=== PATIENT | male | born 1970 | race Caucasian/White ===

== ENCOUNTER 2019-11-09 08:37 | Outpatient (CLI) | payer BC, SELFPAY ==
[2019-11-09] MEDS: diphenhydrAMINE 50 mg/mL SDV 1mL 25 MG IVP (09:30)
[2019-11-09] MEDS: acetaminophen 500 mg Tablet 1000 MG PO (12:40)
== END 2019-11-09 08:38 | disposition home or self-care (01) ==
LOC: NSACUTE 08:39
PROVIDERS: PCP Physician Assistant; Visit Provider Specialist
DX: G35 Multiple sclerosis (principal)
CPT/HCPCS: 96365; 96366; 96374; 96375; 99213; J1200; J2350; J2930; J7040

== ENCOUNTER 2019-11-18 08:03 | Outpatient (CLI) | payer BC, SELFPAY ==
[2019-11-18 08:40] LABS: Basophils % 0.8 %; Eosinophils # 0.3 10^3/uL (0.0-0.8); Eosinophils % 7.6 %; Hematocrit 42.5 % (42.0-52.0); Hemoglobin 14.1 g/dL (11.7-16.6); Lymphocytes # 0.7 10^3/uL (0.8-4.8); Lymphocytes % 16.5 %; Mean Corpuscular HGB Conc 33.2 g/dL (30.0-36.0); Mean Corpuscular Hemoglobin 32.4 pg (28.0-34.0); Mean Corpuscular Volume 97.7 fL (80-94); Mean Platelet Volume 12.2 fL (7.4-10.4); Monocytes # 0.4 10^3/uL (0.2-0.9); Monocytes % 10.7 %; Neutrophils # 2.5 10^3/uL (1.8-7.7); Neutrophils % 64.1 %; Nucleated Red Blood Cells % 0 %; Platelet Count 195 10^3/cmm (130-400); Red Blood Count 4.35 10^6/uL (4.1-5.3); Red Cell Distribution Width 12.1 % (12.1-15.1); White Blood Count 3.9 10^3/uL (4.0-10.0)
[2019-11-18 08:58] LABS: Anion Gap 12.6 (5-19); Blood Urea Nitrogen 13 mg/dL (6-20); Calcium 9.8 mg/dL (8.5-10.5); Carbon Dioxide 26 mmol/L (22-29); Chloride 104 mmol/L (98-107); Glomerular Filtration Rate 64.9 mL/min (90-130); Glucose 106 mg/dL (65-115); Osmolality Calculated 283 mOsm/kg (285-295); Potassium 4.6 mmol/L (3.5-5.1); Sodium 138 mmol/L (136-145)
== END 2019-11-18 08:04 | disposition home or self-care (01) ==
LOC: LAB 08:03
PROVIDERS: PCP Physician Assistant; Visit Provider Specialist
DX: G35 Multiple sclerosis (principal)
CPT/HCPCS: 80048; 85025

== ENCOUNTER 2020-04-27 08:00 | Outpatient (CLI) | payer BC, SELFPAY ==
[2020-04-27] MEDS: acetaminophen 500 mg Tablet 1000 MG PO (08:10)
[2020-04-27] MEDS: diphenhydrAMINE 50 mg/mL SDV 1mL 25 MG IVP (08:30)
== END 2020-04-27 08:01 | disposition home or self-care (01) ==
LOC: NSACUTE 08:01
PROVIDERS: PCP Physician Assistant; Visit Provider Specialist
DX: G35 Multiple sclerosis (principal)
CPT/HCPCS: 96365; 96366; 96375; 99214; J1200; J2350; J2930; J7040

== ENCOUNTER 2020-05-16 07:46 | Outpatient (CLI) | payer BC, SELFPAY ==
--- NOTE | 2020-05-16 08:08 | MR_ITS ---
WS: [id number] MRI HEAD WITH CONTRAST TECHNIQUE: Sagittal T1, T2 axial, T2 axial FLAIR, axial susceptibility weighted imaging, axial diffus ion weighted images, and coronal T2 images were obtained. Pre and post-T1 axial and post T1 coronal i mages. ADC and FSPGR images. CLINICAL INFORMATION: MS COMPARISON: MRI 3 , . 1 and September 08, 2012. FINDINGS: Mild patchy supratentorial white matter changes compatible with history of demyelinating disease. The number and distribution of lesions is not significantly changed since October 23, 2018. Mild T1 hypoin tense lesion load. No abnormal gadolinium enhancement. No enhancing lesions to indicate active diseas e. No significant parenchymal volume loss. No significant atrophy of the corpus callosum. No hemosiderin on susceptibly weighted images. Normal optic chiasm and pituitary infundibulum. Tempor al lobes and hippocampal formations are normal in appearance. Paranasal sinuses and mastoid air cells well aerated. Normal visualized dural venous sinuses. MR/MR head wo/w con [id number] IMPRESSION: 1. Stable patchy supratentorial white matter changes compatible with demyelina ting disease. 2. No enhancing lesions to indicate active disease. 3. Mild T1 hypointense lesion load. 4. No significant parenchymal volume loss. 5. No hemosiderin on the susceptibly weighted images.
--- NOTE | 2020-05-16 08:09 | MR_ITS ---
WS: [id number] MRI CERVICAL SPINE NONCONTRAST AND CONTRAST TECHNIQUE: Sagittal T1, T2 and STIR imaging. Axial T2, gradient, and fiesta imaging. Post gadolinium imaging CLINICAL INFORMATION: MS COMPARISON: and FINDINGS: Straightening of the normal cervical lordosis. Chronic demyelinating plaques in the cervical cord at C2 on C3. No enhancing lesions to indicate active disease. No visualized new lesions since 2016. No s ignificant cord atrophy. C3-C4: Osteophytic ridging. Tiny central protrusion. Mild right greater than left foraminal narrowing . Mild facet arthropathy. C4-C5: Disc osteophyte complex with a shallow central protrusion. Mild central canal stenosis and sli ght contact of the cervical cord. Mild right greater than left foraminal narrowing. Mild facet arthro awa. C5-C6: Minimal disc bulging. Mild left and no significant right foraminal narrowing. Spinal canal is patent. C6-C7: Mild right greater than left foraminal narrowing. Spinal canal is patent. C7-T1: Normal. Visualized brain stem structures: Normal. Prevertebral soft tissues: Normal. MR/MR cervical spine wo/w [id number] IMPRESSION: 1. Chronic demyelinating plaques in the cervical cord at C2 and C3 unchanged f rom previous. No new demyelinating lesions. 2. No enhancing lesions to indicate active disease. 3. No significant cord atrophy. 4. Mild central canal stenosis C4-C5 and C5-C6 due to disc osteophyte complexe s. Tiny central protrusion C4-C5 slightly contacts the cervical cord. This is s lightly progressed since 2016. 5. Mild foraminal narrowing worse at right C3-C4, right C4-C5, left C5-C6 and bilateral C6-C7.
== END 2020-05-16 07:47 | disposition home or self-care (01) ==
LOC: RADWPI 07:50
PROVIDERS: Family Provider Physician Assistant; PCP Physician Assistant; Visit Provider Specialist
DX: G35 Multiple sclerosis (principal); M48.02 Spinal stenosis, cervical region; M25.78 Osteophyte, vertebrae
CPT/HCPCS: 70553; 72156; A9579

== ENCOUNTER 2020-10-18 08:20 | Outpatient (CLI) | payer BC, SELFPAY ==
[2020-10-18] MEDS: acetaminophen 500 mg Tablet 1000 MG PO (08:50)
[2020-10-18] MEDS: diphenhydrAMINE 50 mg/mL SDV 1mL 12.5 MG IVP (08:54)
--- NOTE | 2020-10-18 10:18 | PC.NURSE ---
Medication lot numbers: Solumedrol [id number] 06/09 Benadryl [id number] 12/08 Ocrevus [id number] 06/08
== END 2020-10-18 08:21 | disposition home or self-care (01) ==
LOC: NSACUTE 08:21
PROVIDERS: Family Provider Physician Assistant; PCP Physician Assistant; Visit Provider Specialist
DX: G35 Multiple sclerosis (principal); Z79.899 Other long term (current) drug therapy
CPT/HCPCS: 96365; 96366; 96375; 99214; J1200; J2350; J2930; J7040

== ENCOUNTER 2020-10-21 09:05 | Outpatient (CLI) | payer BC, SELFPAY ==
[2020-10-21 10:04] LABS: Glomerular Filtration Rate 90.1 mL/min (90-130)
== END 2020-10-21 09:06 | disposition home or self-care (01) ==
PROVIDERS: PCP Physician Assistant; Visit Provider Specialist
DX: Z79.899 Other long term (current) drug therapy (principal); G35 Multiple sclerosis
CPT/HCPCS: 82565

== ENCOUNTER → 2021-01-04 08:19 | Outpatient (BNVA) | payer BC, SELFPAY | PROVIDERS: PCP Physician Assistant; Referring Provider Physician Assistant; Visit Provider Nurse Practitioner Family | DX: N40.1 Benign prostatic hyperplasia with lower urinary tract symptoms (principal) | CPT/HCPCS: 81003 ==

== ENCOUNTER 2021-04-05 08:10 | Outpatient (CLI) | payer BC, SELFPAY ==
[2021-04-05] MEDS: acetaminophen 500 mg Tablet 1000 MG PO (08:45)
[2021-04-05] MEDS: diphenhydrAMINE 50 mg/mL SDV 1mL 25 MG IVP (09:15)
== END 2021-04-05 08:11 | disposition home or self-care (01) ==
LOC: NSACUTE 08:11
PROVIDERS: PCP Physician Assistant; Visit Provider Specialist
DX: G35 Multiple sclerosis (principal)
CPT/HCPCS: 96365; 96366; 96375; 99213; J1200; J2350; J2930; J7040

== ENCOUNTER 2021-05-30 06:53 | Outpatient (CLI) | payer BC, SELFPAY ==
--- NOTE | 2021-05-30 07:04 | MR_ITS ---
WS: [id number] MRI RIGHT KNEE HISTORY: RIGHT KNEE INTERNAL DERANGEMENT COMPARISON: Radiograph 05/15/2021 Anterior cruciate ligament: Increased signal throughout a very small caliber ACL. The ACL is very amparo tically oriented and does contain some increased signal. No full-thickness tear is identified. Posterior cruciate ligament: Mild buckling of the ligament. Medial collateral ligament: Mild separation of the distal MCL from the tibia. There is a small amount of fluid between the tibia and the MCL but no full-thickness tear. Posterior lateral corner structures: Intact. Medial menisci: Horizontal tear in the posterior horn extends to the inferior articular surface. Ther e is additional blunting towards the free edge. Lateral meniscus: Intact. Normal signal, size and shape. Extensor mechanism: Distal quadriceps tendon and patellar tendons are intact. Fluid and soft tissue: Small suprapatellar joint effusion. Small Blue's cyst. Osseous and articular structures: Patellofemoral compartment: Mild lateral subluxation of the patella. Cartilage is preserved. There is a very small area of subchondral edema at the patellar eminence. Medial compartment: Marrow edema is focal involving the medial femoral condyle adjacent to the MCL. T here is a small amount of marrow edema involving the tibial plateau. No fracture. Several small defec ts are noted within the cartilage along the weightbearing surface of the femoral condyle. Additional 5 mm cartilage defect along the central portion of the medial tibial plateau with underlying marrow e delmi. Lateral compartment: No marrow edema or fracture. Mild fissuring of the cartilage is diffuse with no full-thickness defect. MR/MR knee RT wo con* [id number] IMPRESSION: 1. Horizontal tear posterior horn medial meniscus with additional blunting of the free edge. 2. Small amount of marrow edema in the medial femoral condyle and medial tibia l plateau. 3. Mild chondromalacia involving the weightbearing surface medial femoral cond yle. Additional focal cartilage defect with underlying marrow edema along the m id medial tibial plateau. 4. Small caliber ACL with vertical orientation. No full-thickness tear is iden tified. 5. Mild MCL sprain. 6. Small joint effusion.
== END 2021-05-30 06:54 | disposition home or self-care (01) ==
PROVIDERS: PCP Physician Assistant; Visit Provider Physician Assistant
DX: M23.91 Unspecified internal derangement of right knee (principal); M25.461 Effusion, right knee; S83.411A Sprain of medial collateral ligament of right knee, initial encounter; S83.241A Other tear of medial meniscus, current injury, right knee, initial encounter; X58.XXXA Exposure to other specified factors, initial encounter; M94.261 Chondromalacia, right knee
CPT/HCPCS: 73721

== ENCOUNTER 2021-09-28 08:03 | Outpatient (CLI) | payer BC, SELFPAY ==
[2021-09-28 08:12] VITALS: BP 104/72; PULSE 66; RESP 18; TEMP 36.2; O2SAT 99
[2021-09-28] MEDS: acetaminophen 500 mg Tablet 1000 MG PO (08:30)
[2021-09-28] MEDS: sodium chloride 0.9% 250 ML 50 ML IV (08:34)
[2021-09-28] MEDS: diphenhydrAMINE 50 mg/mL SDV 1mL 25 MG IV (08:34)
[2021-09-28 08:58] VITALS: BP 126/84; PULSE 68; RESP 16; TEMP 36.7; O2SAT 97
[2021-09-28 09:45] VITALS: BP 106/72; PULSE 64; RESP 16; TEMP 36.7; O2SAT 99
[2021-09-28 11:23] VITALS: BP 111/71; PULSE 75; RESP 16; TEMP 36.9; O2SAT 99
== END 2021-09-28 08:04 | disposition home or self-care (01) ==
LOC: ONCMED 08:06
PROVIDERS: PCP Physician Assistant; Referring Provider Specialist; Visit Provider Specialist
DX: G35 Multiple sclerosis (principal)
CPT/HCPCS: 96365; 96366; 96375; J1200; J2350; J2930; J7040; J7050

== ENCOUNTER 2022-02-21 06:00 | Outpatient (RCR) | payer BC, SELFPAY | END 2022-03-18 23:59 | disposition home or self-care (01) | LOC: SPT 06:00 | PROVIDERS: PCP Physician Assistant; Referring Provider Specialist; Visit Provider Specialist | DX: M54.9 Dorsalgia, unspecified (principal) | CPT/HCPCS: 97110; 97161 ==

== ENCOUNTER 2022-03-29 07:47 | Outpatient (CLI) | payer BC, SELFPAY ==
[2022-03-29 07:55] VITALS: BP 121/82; PULSE 66; RESP 18; TEMP 36.1; O2SAT 97
[2022-03-29] MEDS: sodium chloride 0.9% 250 ML 50 ML IV (08:28)
[2022-03-29] MEDS: acetaminophen 500 mg Tablet 1000 MG PO (08:29)
[2022-03-29] MEDS: diphenhydrAMINE 50 mg/mL SDV 1mL 25 MG IVP (08:30)
[2022-03-29 09:13] VITALS: BP 129/80; PULSE 64; RESP 18; TEMP 36.4; O2SAT 99
[2022-03-29 09:41] VITALS: BP 126/88; PULSE 70; RESP 18; TEMP 36.2; O2SAT 99
[2022-03-29 11:09] VITALS: BP 126/73; PULSE 67; RESP 18; TEMP 36.6; O2SAT 99
== END 2022-03-29 07:48 | disposition home or self-care (01) ==
LOC: ONCMED 07:48
PROVIDERS: PCP Physician Assistant; Visit Provider Specialist
DX: G35 Multiple sclerosis (principal)
CPT/HCPCS: 96365; 96366; 96375; J1200; J2350; J2930; J7040; J7050

== ENCOUNTER 2022-05-30 09:35 | Outpatient (CLI) | payer BC, SELFPAY ==
--- NOTE | 2022-05-30 09:30 | MR_ITS ---
WS: [id number] MRI HEAD WITH CONTRAST TECHNIQUE: Sagittal T1, T2 axial, T2 axial FLAIR, axial susceptibility weighted imaging, axial diffus ion weighted images, and coronal T2 images were obtained. Pre and post-T1 axial and post T1 coronal i mages. ADC and FSPGR images. CLINICAL INFORMATION: G35 - Multiple sclerosis COMPARISON: MRI May 16, 2020 FINDINGS: No evidence of restricted diffusion to suggest acute ischemia. Ventricular system and basal cisterns are patent. Normal optic chiasm and pituitary infundibulum. Temporal lobes and hippocampal formations are normal in appearance. Mild patchy supratentorial white matter changes compatible with history of demyelinating disease. Num steve and distribution of lesions is unchanged since May 16, 2020. Mild T1 hypointense lesion shandra d. No abnormal gadolinium enhancement. No enhancing lesions to indicate active disease. Minimal parenchymal volume loss unchanged. No significant atrophy of the corpus callosum. No hemoside rin on susceptibly weighted images. Paranasal sinuses and mastoid air cells well aerated. Normal visu alized dural venous sinuses. MR/MR head wo/w con [id number] IMPRESSION: 1. Stable patchy supratentorial white matter changes compatible with history of demyelinating disease. 2. No enhancing lesions to indicate active disease. 3. Mild T1 hypointense lesion load unchanged. 4. Minimal parenchymal volume loss is stable. No atrophy of the corpus callosum . 5. No hemosiderin on the susceptibly weighted images
--- NOTE | 2022-05-30 10:15 | MR_ITS ---
WS: [id number] MRI CERVICAL SPINE NONCONTRAST AND CONTRAST TECHNIQUE: Sagittal T1, T2 and STIR imaging. Axial T2, gradient, and fiesta imaging. Post gadolinium imaging was obtained CLINICAL INFORMATION: G35 - Multiple sclerosis COMPARISON: May 16, 2020 FINDINGS: Straightening of the normal cervical lordosis. Chronic demyelinating plaques in the cervical cord at C2 and C3. No enhancing lesions to indicate active disease. No new lesions since 2019. No significant cord atrophy. Demyelinating lesions at the cervicomedullary junction also unchanged since 2019. C2-C3: No significant disc bulging. Mild facet arthropathy. Spinal canal and foramen are patent. C3-C4: Osteophytic ridging. Tiny central protrusion. Mild right greater than left foraminal narrowing . Mild facet arthropathy. C4-C5: Disc osteophyte complex with a shallow central protrusion. Mild cent ral canal stenosis with slight contact of the cervical cord. Mild right greater than left foraminal n arrowing. Mild facet arthropathy. C5-C6: Minimal disc bulging. Mild to moderate left and no significant right foraminal narrowing. Mild central canal stenosis. C6-C7: Mild bilateral LEFT greater than RIGHT foraminal narrowing. Mild central canal stenosis. Mild facet arthropathy.. C7-T1: Normal. Visualized brain stem structures: Normal. Prevertebral soft tissues: Normal. MR/MR cervical spine wo/w [id number] IMPRESSION: 1. Chronic demyelinating plaques in the cervical cord at C2 and C3 unchanged f rom previous. No new demyelinating lesions. 2. Stable demyelinating lesions at the cervical medullary junction. 3. No enhancing lesions to indicate active disease. 4. No significant cord atrophy. 5. Mild central canal stenosis C4-C5, C5-C6, and C6-C7. 6. Mild to moderate multilevel foraminal narrowing unchanged.
--- NOTE | 2022-05-30 11:00 | MR_ITS ---
WS: [id number] MRI THORACIC SPINE WITH CONTRAST TECHNIQUE: Sagittal T1, T2 and STIR imaging. Axial T2 imaging. Post gadolinium imaging was obtained. CLINICAL INFORMATION: G35 - Multiple sclerosis COMPARISON: MRI 2013 FINDINGS: Normal thoracic alignment. No acute compression. No high-grade central canal stenosis. Cord signal is normal. No suspicious lesions within the thoracic cord. No enhancing demyelinating lesions to indica te active disease. Moderate facet arthropathy in the lower thoracic spine. Normal caliber thoracic aorta. Adrenal glands are normal. No significant cord atrophy. No other suspicious findings. MR/MR thoracic spine wo/w [id number] IMPRESSION: 1. Normal MRI thoracic spine. 2. Normal cord signal. No chronic or active demyelinating lesions. 3. No significant thoracic cord atrophy.
[2022-05-30] MEDS: gadobenate dimeglumine 20 mL vial IV (11:16)
== END 2022-05-30 09:36 | disposition home or self-care (01) ==
PROVIDERS: PCP Physician Assistant; Visit Provider Specialist
DX: G35 Multiple sclerosis (principal)
CPT/HCPCS: 70553; 72156; 72157

== ENCOUNTER 2022-10-03 11:37 | Oncology outpatient (recurring) (ONCR) | payer BC, SELFPAY ==
[2022-10-03 11:09] VITALS: BP 110/77; PULSE 81; RESP 18; TEMP 36.6; O2SAT 96
[2022-10-03] MEDS: acetaminophen 500 mg Tablet 1000 MG PO (11:44)
[2022-10-03] MEDS: sodium chloride 0.9% 250 ML 50 ML IV (11:44)
[2022-10-03] MEDS: diphenhydrAMINE 50 mg/mL SDV 1mL 25 MG IVP (11:46)
[2022-10-03 12:29] VITALS: BP 120/74; PULSE 68; RESP 16; TEMP 36.8; O2SAT 97
[2022-10-03 13:06] VITALS: BP 109/74; PULSE 77; RESP 16; TEMP 36.8; O2SAT 98
[2022-10-03 14:34] VITALS: BP 118/79; PULSE 72; RESP 16; TEMP 36.4; O2SAT 99
== END 2022-10-16 23:59 | disposition home or self-care (01) ==
PROVIDERS: PCP Physician Assistant; Visit Provider Specialist
DX: G35 Multiple sclerosis (principal); Z79.899 Other long term (current) drug therapy
CPT/HCPCS: 96365; 96366; 96375; A4222; J1200; J2350; J2930; J7040; J7050

== ENCOUNTER 2023-04-03 12:36 | Oncology outpatient (recurring) (ONCR) | payer BC, SELFPAY ==
[2023-04-03] VITALS (7 sets, daily range): BP systolic 110–147; BP diastolic 65–77; PULSE 62–92; RESP 16–18; TEMP 36.3–36.8; O2SAT 97–99
[2023-04-03] MEDS: acetaminophen 500 mg Tablet 1000 MG PO (09:34)
[2023-04-03] MEDS: sodium chloride 0.9% 250 ML 75 ML IV (09:35)
[2023-04-03] MEDS: methylPREDNISolone sod succ 125 mg SDV IVP (09:35)
[2023-04-03] MEDS: diphenhydrAMINE 50 mg/mL SDV 1mL 25 MG IVP (09:40)
[2023-04-03] MEDS: ocrelizumab 600 MG in sodium chloride 0.9% 500 ML 100 MG IV (09:46)
== END 2023-04-18 23:59 | disposition home or self-care (01) ==
PROVIDERS: PCP Physician Assistant; Visit Provider Specialist
DX: M79.7 Fibromyalgia (principal)
CPT/HCPCS: 96365; 96366; 96375; J1200; J2350; J2930; J7040; J7050

== ENCOUNTER 2023-09-30 08:50 | Oncology outpatient (recurring) (ONCR) | payer BC, SELFPAY ==
[2023-09-30 08:37] VITALS: BP 110/70; PULSE 81; RESP 18; TEMP 36.8; O2SAT 98
[2023-09-30] MEDS: sodium chloride 0.9% 250 ML 75 ML IV (08:55)
[2023-09-30] MEDS: acetaminophen 500 mg Tablet 1000 MG PO (08:58)
[2023-09-30] MEDS: diphenhydrAMINE 50 mg/mL SDV 1mL 25 MG IVP (08:59)
[2023-09-30] MEDS: methylPREDNISolone sod succ 125 mg/2 mL INJ IVP (08:59)
[2023-09-30] MEDS: ocrelizumab 600 MG in sodium chloride 0.9% 500 ML 100 MG IV (09:12)
[2023-09-30 09:15] VITALS: BP 115/74; PULSE 79; RESP 18; TEMP 36; O2SAT 98
[2023-09-30 09:30] VITALS: BP 116/72; PULSE 91; RESP 17; TEMP 36.2; O2SAT 98
[2023-09-30 09:45] VITALS: BP 123/80; PULSE 75; RESP 16; TEMP 36.4; O2SAT 97
[2023-09-30 11:50] VITALS: BP 132/67; PULSE 72; RESP 17; TEMP 36.4; O2SAT 97
== END 2023-10-17 23:59 | disposition home or self-care (01) ==
LOC: ONCMED 08:50
PROVIDERS: PCP Physician Assistant; Visit Provider Specialist
DX: M79.7 Fibromyalgia (principal)
CPT/HCPCS: 96375; 96413; 96415; J1200; J2350; J2930; J7040; J7050

== ENCOUNTER → 2024-01-14 08:21 | Outpatient (BNVA) | payer BC, SELFPAY | PROVIDERS: PCP Physician Assistant; Referring Provider Specialist; Visit Provider Student in an Organized Health Care Education/Training Program | DX: D17.22 Benign lipomatous neoplasm of skin and subcutaneous tissue of left arm (principal); R22.9 Localized swelling, mass and lump, unspecified | CPT/HCPCS: 73090 ==

== ENCOUNTER 2024-03-16 14:15 | Oncology outpatient (recurring) (ONCR) | payer BC, SELFPAY ==
--- NOTE | 2024-03-16 14:30 | MR_ITS ---
WS: [id number] MRI RIGHT FOREARM WITH AND WITHOUT CONTRAST. COMPARISON: Radiograph 01/14/2024 Multiplanar, multisequence imaging is performed with and without contrast. MultiHance 17 mm. Palpable markers placed along the medial and lateral aspect of the mid RIGHT forearm. There is no und erlying mass identified within the soft tissues. There is a prominent superficial vein corresponding to the marker involving the ulna. The bone is normal. There is no marrow edema. No fractures. No lipo ma. No enhancing mass. No joint effusion. MR/MR forearm RT wo/w con [id number] IMPRESSION: Negative MRI of the RIGHT forearm. No soft tissue or bone abnormalities noted a t the site of the palpable markers that were placed.
[2024-03-16] MEDS: gadobenate dimeglumine 20 mL vial IV (15:00)
== END 2024-03-18 23:59 | disposition home or self-care (01) ==
LOC: RAD 14:15 → ONCMED 04-02 11:31
PROVIDERS: PCP Physician Assistant; Visit Provider Physician Assistant
DX: D17.22 Benign lipomatous neoplasm of skin and subcutaneous tissue of left arm (principal)
CPT/HCPCS: 73220; A9577

== ENCOUNTER 2024-04-30 09:52 | Oncology outpatient (recurring) (ONCR) | payer BC, SELFPAY ==
[2024-04-30 10:16] VITALS: BP 116/76; PULSE 76; RESP 16; TEMP 36.6; O2SAT 98
[2024-04-30] MEDS: acetaminophen 500 mg Tablet 1000 MG PO (10:53)
[2024-04-30] MEDS: sodium chloride 0.9% 250 ML 75 ML IV (10:54)
[2024-04-30] MEDS: methylPREDNISolone sod succ 125 mg/2 mL INJ IVP (10:56)
[2024-04-30] MEDS: diphenhydrAMINE 50 mg/mL SDV 1mL 25 MG IVP (10:59)
[2024-04-30] MEDS: ocrelizumab 600 MG in sodium chloride 0.9% 500 ML 100 MG IV (11:33)
[2024-04-30 11:38] VITALS: BP 102/69; PULSE 63; RESP 16; TEMP 36.4; O2SAT 95
[2024-04-30 12:14] VITALS: BP 111/73; PULSE 66; RESP 16; TEMP 36; O2SAT 99
[2024-04-30 13:00] VITALS: BP 106/70; PULSE 71; RESP 16; TEMP 36.6; O2SAT 95
[2024-04-30 14:12] VITALS: BP 122/71; PULSE 77; RESP 17; TEMP 36.4; O2SAT 98
== END 2024-05-18 23:59 | disposition home or self-care (01) ==
PROVIDERS: PCP Physician Assistant; Visit Provider Physician Assistant
DX: M79.7 Fibromyalgia (principal); Z79.899 Other long term (current) drug therapy
CPT/HCPCS: 96375; 96413; 96415; A4222; J1200; J2350; J2919; J7040; J7050

== ENCOUNTER → 2024-06-09 15:06 | Outpatient (BNVA) | payer BC, SELFPAY | PROVIDERS: PCP Physician Assistant; Visit Provider Physician Assistant | DX: M79.641 Pain in right hand (principal); M25.531 Pain in right wrist | CPT/HCPCS: 73110 ==

== ENCOUNTER 2024-06-17 05:44 | Day surgery (SDC) | payer BC, SELFPAY ==
[2024-06-17] VITALS (8 sets, daily range): BP systolic 100–179; BP diastolic 67–97; PULSE 63–81; RESP 16–20; TEMP 36.6; O2SAT 100; BMI 23.4
--- NOTE | 2024-06-17 06:43 | W.PM.OPSFHP ---
Same Day Surgery H&P Indication for Procedure/HPI DATE OF PROCEDURE: June 17, 2024 CHIEF COMPLAINT/INDICATIONFOR SURGICAL PROCEDURE: Right volar forearm mass, right dorsal/ulnar forearm mass PREOP DIAGNOSIS: Right volar forearm mass, right dorsal/ulnar forearm mass PLANNED PROCEDURE: Operation Date: 06/17/24 07:00 Proposed Procedures p volar forearm mass excision and dorsal ulnar forearm mass excision (local only)(Right) - Antonio Gonzales DO Medications/Allergies* Home Medications Medication Instructions Recorded Confirmed Type melatonin 5 mg capsule 5 mg PO .HS PRN Insomnia 11/09/19 06/16/24 History acetaminophen 325 mg tablet 325 mg PO QID PRN Pain 04/05/21 06/16/24 History (Tylenol) cetirizine 10 mg capsule (Allergy 10 mg PO DAILY PRN Allergy Symptoms 09/25/21 06/16/24 History Relief (cetirizine)) gabapentin 100 mg capsule 200 mg PO DAILY 06/16/24 06/17/24 History Allergies/Adverse Reactions Allergy/AdvReac Type Severity Reaction Status Date / Time No Known Allergies Allergy Verified 06/16/24 09:52 Pertinent History/Comorbid Conditions* Medical History (Updated 06/09/24 @ 15:59 by BHAVNA Mosquera) Chronic migraine Anesthesia Relapsing-remitting multiple sclerosis Benign prostatic hyperplasia Neoplasm, nose BPH loc w urin obs/LUTS Surgical History (Updated 03/20/22 @ 09:25 by Georgette Neves DO) No pertinent past surgical history History of tonsillectomy History of placement of ear tubes Family History (Updated 11/09/19 @ 10:02 by Gloria De Leon RN) Depression Mother Cancer Father Social History Smoking and tobacco/nicotine status: never used tobacco/nicotine Alcohol intake: current Alcohol intake frequency: 3 or more drinks per day Substance/Drug Use: never Marital status: Single Current occupational status: employed Pertinent Exam Findings alert, oriented x 3, operative site marked and procedure specific exam findings Please refer to detailed orthopedic examination on 04/27/2024 listed below: Right Forearm Exam: soft palpable mobile subcut lipoma, volar forearm soft palpable mobile subcut lipoma, dorsal/ulnar forearm able to make all cardinal hand movements on right hand/wrist, sensation intact light touch to the right upper extremity no tenderness palpation over the soft mobile masses consistent with lipomas Compartment soft compressible no signs of infection He is warm well-perfused Recommendations Surgery/Procedure today Other Plans: Plan to proceed to the OR today for a right volar forearm mass excision, right dorsal/ulnar forearm mass excision under local only. Patient at this point in time is subcutaneous palpable and mobile masses on the forearm. At this point time he like to have these excised and sent for pathology to verify what they are. Patient understands the ins and outs procedure the risk benefits complication alternatives surgery and through shared decision-making elects proceed with surgical intervention. All questions have been answered at this time. Coding Level of Care Code Acute Code for Chg Fwd
[2024-06-17] MEDS: ceFAZolin 2,000 MG in sodium chloride 0.9% (plus) 50 ML 100 MG IV (06:56)
[2024-06-17] MEDS: sodium chloride 0.9% 250 ML 30 ML IV (06:57)
[2024-06-17] MEDS: lidocaine-epi 1% 20 mL INJ 9 ML INJECTION (07:33)
[2024-06-17] MEDS: sodium bicarbonate 4.2% 0.5 mEq/mL SDV 5mL INTRADERMA (07:33)
--- NOTE | 2024-06-17 07:36 | PM.OP ---
Operative Report Date of procedure: June 17, 2024 Surgeon: Antonio Gonzales DO Materials Development Engineer: Homar Gonzales PA-C: PA was necessary for assistance in this case with hand positioning to execute the procedure, retraction and protection of neurovascular structures as well as to assist with wound closure and dressing application. Procedure: Preoperative diagnosis: Right volar forearm mass, right dorsal/ulnar forearm mass Postoperative diagnosis: Same, masses appear to be lipomas procedure Right volar forearm mass/lipoma excision (2 cm x 2 cm x 1 cm) Right dorsal/ulnar forearm mass/lipoma excision (1 cm x 1 cm x 1 cm) Specimens removed/disposition: Right volar and dorsal/ulnar forearm mass/lipomas excised and sent for pathology Surgeon: Antonio Gonzales DO Estimated blood loss: 2mL Tourniquet time 13 minutes IV fluids: 100mL Complications: None Findings: See operative report narrative Condition: stable Disposition: same day Brief History: Patient's been worked up in the outpatient setting and findings consistent with preoperative diagnosis.? Patient has a right?volar forearm mass, right dorsal/ulnar mass. Patient has attempted conservative treatment and this has become minimally painful but have become a nuisance and he like to have these removed also to confirm make sure that these are not malignant. We had MRI ordered which did not picker feeder any significant or malignant or invasive masses. We talked about treatment options as far as nonoperative and operative intervention.? At this point time patient through shared decision making elected proceed with right volar forearm mass excision, right dorsal/ulnar forearm mass excision. Patient understands risk benefits complication alternatives surgical nonsurgical treatment options.? Understanding risk of surgery patient agrees to proceed.? All questions answered.? Consent obtained in the preoperative holding area, patient elects to proceed with local only anesthesia. Procedure: Patient seen evaluate in the preoperative holding area.? Consent was signed and reviewed with patient.? All questions were answered at that time.? Correct extremity was then marked.? Patient wanted to do local only anesthesia he subsequently was then brought back into the operative suite. Patient was then placed in supine position kept on [facility], all bony prominences well-padded patient was properly secured to the bed.? An armboard was then applied for the right upper extremity.? A nonsterile tourniquet was applied to the right upper extremity arm.? right upper extremity was then prepped and draped in standard orthopedic fashion.? Final timeout performed.? Patient received appropriate preoperative antibiotics. Under sterile aseptic technique I began with local anesthetic for my preplanned surgical sites.? Then I utilized an Esmarch tourniquet to exsanguinate the right upper extremity to 250 mmHg Started off with the volar forearm mass this was then subsequently palpated and a direct longitudinal incision was made over this. I then made incision sharp scalpel through skin. Switched to let the dissection scissors immediately encountered a fatty lipoma that I subsequently spread with my let the dissection scissors around and circumferentially dissected this and this was excised to its entirety measuring 2 cm x 2 cm x 1 cm. I then utilized bipolar electrocautery to cauterize remove any excess fat in the area there was no deep communication or invasion of this mass or any invasive malignant appearances the fascia was intact. This was irrigated. And then attention towards towards the right dorsal/ulnar mass. A direct longitudinal incision was made over this mass made incision through skin with scalpel. Switch to Littler dissection scissors and once again encountered a subcutaneous fat and encountered to lipoma measuring 1 cm x 1 cm x 1 cm I utilized dissection scissors to spread around and circumferentially dissected this out and remove this to its entirety. I utilized bipolar electrocautery to excise any excess fat in the area. There was no invasive signs or malignant signs of this lipoma. The fascia was intact underneath. All neurovascular structures were protected throughout this case. I then subsequently thoroughly irrigated the wound bed. Both of the lipomas dissected of the forearm were excised and sent for pathology. ?.? I then thoroughly irrigated the wound bed tourniquet was deflated.? Hemostasis was satisfactory with bipolar electrocautery.? I then closed the incision in layered fashion with running horizontal mattress nylon stitch for skin.? Xeroform over the incisions 4 x 4's ABD soft roll Estevan wrap applied.? Patient returned to the preoperative area in stable condition Disposition: Patient taken back recovery in stable condition recovering well.? Patient will receive appropriate discharge instructions as well as pain medication postoperatively.? Patient placed in bulky soft dressing.? We will follow-up with in the orthopedic office in 2 weeks.? Patient understands of any questions or concerns and contact the office.
--- NOTE | 2024-06-17 07:43 | P.BOP_ITS ---
Date of Procedure: [June 17, 2024] Surgeon: [Dr. Janet DO] Marshmallow Machine Worker(s): [Homar Gonzales PA-C] Procedure(s) performed: [Right volar forearm lipoma excision, 2 cm Right dorsal ulnar lipoma excision 1 cm] Findings of the procedure(s): [2 fatty lipoma masses removed on right forearm. Procedure went well and as planned.] Estimated blood loss: [2 mL] Specimen(s) removed: [2 fatty lipoma masses] Post-operative diagnosis: [2 fatty lipoma mass]
--- NOTE | 2024-06-17 07:55 | ANE.PACU2 ---
Inpatient post-anesthesia follow up: Airway intact: Yes Vital signs: Temperature 97.8 F Pulse Rate 63 Respiratory Rate 18 Blood Pressure 179/97 Pulse Oximetry 100 Oxygen Delivery Me thod Room Air Oxygen Flow Rate Fraction of Inspir ed Oxygen Hydration adequate: Yes Nausea and vomiting: No Pain level: 1 Mental status: Baseline
== END 2024-06-17 07:55 | disposition home or self-care (01) ==
PROVIDERS: PCP Physician Assistant; Visit Provider Student in an Organized Health Care Education/Training Program
PROC: (CPT 11401; principal; 2024-06-17 07:00)
DX: D17.21 Benign lipomatous neoplasm of skin and subcutaneous tissue of right arm (principal); N40.1 Benign prostatic hyperplasia with lower urinary tract symptoms; N13.8 Other obstructive and reflux uropathy
CPT/HCPCS: 11401; 11402; 12032; 88304; J0690; J7050

== ENCOUNTER 2024-10-30 07:46 | Oncology outpatient (recurring) (ONCR) | payer BC, SELFPAY ==
[2024-10-30 08:18] VITALS: BP 107/70; PULSE 69; RESP 17; TEMP 36.2; O2SAT 97
[2024-10-30] MEDS: acetaminophen 500 mg Tablet 1000 MG PO (08:36)
[2024-10-30] MEDS: sodium chloride 0.9% 250 ML 75 ML IV (08:38)
[2024-10-30] MEDS: diphenhydrAMINE 50 mg/mL SDV 1mL 25 MG IVP (08:38)
[2024-10-30] MEDS: methylPREDNISolone sod succ 125 mg/2 mL INJ IVP (08:44)
[2024-10-30 09:20] VITALS: BP 112/76; PULSE 81; RESP 16; TEMP 36.1; O2SAT 97
[2024-10-30] MEDS: ocrelizumab 600 MG in sodium chloride 0.9% 500 ML 100 MG IV (09:20)
[2024-10-30 09:35] VITALS: BP 110/72; PULSE 77; RESP 16; TEMP 36.4; O2SAT 97
[2024-10-30 09:57] VITALS: BP 111/73; PULSE 70; RESP 16; TEMP 36.4; O2SAT 98
[2024-10-30 10:27] VITALS: BP 113/72; PULSE 77; RESP 16; TEMP 36.3; O2SAT 98
== END 2024-11-16 23:59 | disposition home or self-care (01) ==
LOC: ONCMED 07:47
PROVIDERS: PCP Physician Assistant; Visit Provider Physician Assistant
DX: M79.7 Fibromyalgia (principal); Z79.899 Other long term (current) drug therapy
CPT/HCPCS: 96375; 96413; 96415; J1200; J2350; J2919; J7040; J7050; J9999

== ENCOUNTER 2025-04-30 07:52 | Oncology outpatient (recurring) (ONCR) | payer BC, SELFPAY ==
[2025-04-30] MEDS: diphenhydrAMINE 50 mg/mL SDV 1mL 25 MG IVP (08:47)
[2025-04-30] MEDS: methylPREDNISolone sod succ 125 mg/2 mL INJ IVP (08:53)
[2025-04-30 09:00] VITALS: BP 115/79; PULSE 67; TEMP 36.7
[2025-04-30 09:33] VITALS: BP 118/79; PULSE 69; RESP 16; TEMP 36.6; O2SAT 99
[2025-04-30 09:48] VITALS: BP 122/77; PULSE 65; RESP 16; TEMP 36.5; O2SAT 99
[2025-04-30 10:04] VITALS: BP 113/78; PULSE 59; RESP 16; TEMP 36.6; O2SAT 98
[2025-04-30 10:35] VITALS: BP 113/73; PULSE 68; RESP 16; TEMP 36.6; O2SAT 98
[2025-04-30 12:00] VITALS: BP 118/77; PULSE 73; RESP 16; TEMP 36.3; O2SAT 99
== END 2025-05-18 23:59 | disposition home or self-care (01) ==
PROVIDERS: PCP Physician Assistant; Visit Provider Internal Medicine
DX: M79.7 Fibromyalgia (principal); Z79.899 Other long term (current) drug therapy
CPT/HCPCS: 96375; 96413; 96415; A4222; J1200; J2350; J2919; J7040; J7050; J9999